=== PATIENT | female | born 1960 | race Two or more races ===

== ENCOUNTER → 2023-08-16 | Outpatient (CLI) | payer MEDICARE, SELFPAY ==
[2023-08-23 00:07] LABS: Lyme IgG P18 Ab Present (.); Lyme IgG P23 Ab Absent (.); Lyme IgG P28 Ab Absent (.); Lyme IgG P30 Ab Absent (.); Lyme IgG P39 Ab Absent (.); Lyme IgG P41 Ab Present (.); Lyme IgG P45 Ab Present (.); Lyme IgG P58 Ab Present (.); Lyme IgG P66 Ab Absent (.); Lyme IgG P93 Ab Absent (.); Lyme IgG WB Interpretation Negative (.); Lyme IgM P23 Ab Absent (.); Lyme IgM P39 Ab Absent (.); Lyme IgM P41 Ab Present (.); Lyme IgM WB Interpretation Negative (.)
== END | disposition home or self-care (01) ==
PROVIDERS: Referring Provider Nurse Practitioner Family; Visit Provider Nurse Practitioner Family
DX: A69.20 Lyme disease, unspecified (principal); K59.00 Constipation, unspecified; A69.22 Other neurologic disorders in Lyme disease; B60.09 Other babesiosis; R53.82 Chronic fatigue, unspecified; G89.29 Other chronic pain; R51.9 Headache, unspecified; R21 Rash and other nonspecific skin eruption; L65.9 Nonscarring hair loss, unspecified; G47.00 Insomnia, unspecified; R06.00 Dyspnea, unspecified; R41.89 Other symptoms and signs involving cognitive functions and awareness; R63.5 Abnormal weight gain; F32.A Depression, unspecified; F41.9 Anxiety disorder, unspecified; R61 Generalized hyperhidrosis; E55.9 Vitamin D deficiency, unspecified; A44.0 Systemic bartonellosis; E61.7 Deficiency of multiple nutrient elements
CPT/HCPCS: 86617